=== PATIENT | female | born 1960 | race Caucasian/White ===

== ENCOUNTER 2020-11-09 12:27 | Emergency (ER) | payer OTHER ==
[~2020-11-09] VITALS: Ht 157.5 cm; Wt 88.5 kg
== END 2020-11-09 15:25 | disposition home or self-care (01) ==
LOC: ER1 12:27
DX: Z23 Encounter for immunization (principal); U07.1 COVID-19; I10 Essential (primary) hypertension; Z88.5 Allergy status to narcotic agent; Z88.8 Allergy status to other drugs, medicaments and biological substances
CPT/HCPCS: 99284; M0243